=== PATIENT | male | born 1945 | race Caucasian/White ===

== ENCOUNTER 2016-10-07 12:10 | Emergency (ER) | payer OTHER ==
[2016-10-07 12:15] VITALS: RESP 16; TEMP 97.5
--- NOTE | 2016-10-07 12:17 | EDPHY ---
H & P Stated Complaint: back pain Time Seen by Provider: 10/07/16 12:16 HPI/ROS: CHIEF COMPLAINT: Low back pain x3 days HISTORY OF PRESENT ILLNESS: 71-year-old male drove to the emergency department complaining of 3 days of paraspinous lumbar pain, worse if he is standing or walking, better if he is sitting or flexed at the waist. Pain started initially few weeks ago when he was lifting is 95-year-old mother up. The pain then resolved slightly but increase in intensity 3 days ago. Atraumatic. No incontinence, no retention, no saddle anesthesia. No radiculopathy. No fever or chills. No trauma or fall. No Abdominal pain. No syncope or near syncope. No chest pain. No dysuria hematuria or increased frequency. No urethral discharge. No scrotal/testicular pain. REVIEW OF SYSTEMS: A ten point review of systems was performed and is negative with the exception of the items mentioned in the HPI PAST MEDICAL & SURGICAL HISTORY: Atrial fibrillation, chronic warfarin anticoagulation. Prostatectomy secondary to BPH history. SOCIAL HISTORY:nonsmoker. No drug use. . Former middle school baseball coach at [id number] PHYSICAL EXAM (Prior to examination, patient consented to physical exam, hands were washed and my usual and customary physical exam procedures followed) 1) GENERAL: Well-developed, well-nourished, alert and oriented. Appears to be in no acute distress. On LEs he is asked to stand at which point he appears uncomfortable 2) HEAD: Normocephalic, atraumatic 3) HEENT: Pupils equal, round, reactive to light bilaterally. Sclera anicteric. 4) NECK: Full range of motion, 5) LUNGS: Clear auscultation bilaterally 6) HEART: Regular rate and rhythm, no murmur, no heave, no gallop. 7) ABDOMEN: No guarding, no rebound, no focal tenderness, negative McBurney's, negative Garcia's, negative Rovsing's, negative peritoneal sign, no mass, no pulsatility 8) MUSCULOSKELETAL: Moving all extremities, no focal areas of tenderness, no obvious trauma. No peripheral edema or discoloration. 9) BACK: Painful paraspinous pain when he is standing erect, better if sitting flex at the waist. No CVA tenderness, no midline vertebral tenderness, no fluctuance, no step-off, no obvious trauma, no visual or palpable abnormality. Patella, Achilles reflexes intact to bilateral strength 5/5 10) SKIN: No rash, no petechiae. DIFFERENTIAL DIAGNOSIS: In no particular order, including but not limited to, fracture, sprain/strain, cauda equina, spinal infectious etiology, abdominal aneursym, - Personal History Current Tetanus/Diphtheria Vaccine: Yes Tetanus Vaccine Date: within 10 yrs - Medical/Surgical History Hx Asthma: No Hx Chronic Respiratory Disease: No Hx Diabetes: No Hx Cardiac Disease: Yes Hx Renal Disease: No Hx Cirrhosis: No Hx Alcoholism: No Hx HIV/AIDS: No Hx Splenectomy or Spleen Trauma: No Other PMH: afib, cardiac MVR, hernia repair, knee surgery - Social History Smoking Status: Never smoked Constitutional: Initial Vital Signs Temperature (C) 36.4 C 10/07/16 12:12 Heart Rate 92 10/07/16 12:12 Respiratory Rate 16 10/07/16 12:12 Blood Pressure 126/82 H 10/07/16 12:12 O2 Sat (%) 96 10/07/16 12:12 O2 Delivery Mode Room Air Allergies/Adverse Reactions: Penicillins Allergy (Severe, Verified 04/13/16 15:03) Rash Home Medications: Medication Instructions Recorded Acetaminophen [Tylenol Arthritis] 650 mg PO HS PRN 04/13/16 Metoprolol Succinate Xr [Toprol Xl 50 mg PO DAILY@18 04/13/16 50 mg (*)] Ramipril [Altace 5mg (*)] 5 mg PO DAILY@18 04/13/16 Vitamin B Complex [B Complex] 1 each PO DAILY 04/13/16 Warfarin Sodium [Coumadin 2.5MG 2.5 mg PO SUTUTHSA@04/13/16 (*)] Warfarin Sodium [Coumadin 5MG (*)] 5 mg PO MOWEFR@18 04/13/16 Hydrocodone/APAP 5/325 [Hitchins 1 tab PO Q6 PRN #15 tab 10/07/16 5/325 (RX)] Medical Decision Making - Diagnostics Imaging Results: Imaging Impressions Abdomen/Pelvis CT 10/07/16 12:30 Impression: 1. Bilateral nonobstructive nephrolithiasis, left greater than right. No ureterolithiasis or hydronephrosis. 2. Possible cysts versus solid masses with two in the left kidney upper pole measuring up to 6.5 cm and one in the right kidney lower pole measuring 2.2 cm. [address] follow up [address] abdomen with contrast or renal ultrasound. 3. Cholelithiasis without biliary ductal dilation. 4. Hypodense nonspecific lesion in the liver measuring 1.4 cm. This could be evaluated with ultrasound or CT. 5. Atherosclerotic aorta without aneurysm. 6. Diverticulosis without diverticulitis or bowel obstruction. 7. Severe degenerative lumbar spine resulting in severe central canal stenosis at L2-L3 and L3-L4. L5-S1 spondylolytic grade 2 spondylolisthesis resulting in severe bilateral neural foraminal stenosis. Findings and recommendations discussed with Emergency Department , SURINDER Aj at 1320 hours on October 07, 2016. Final report concurs with initial preliminary interpretation. Attention: This CT examination is specifically designed to evaluate patients who are clinically suspected of having acute obstructive uropathy. This examination does not use radiographic contrast, and as such, provides only a limited evaluation of the abdomen, pelvis and retroperitoneum. If there is further clinical suspicion for pathological conditions other than obstructive uropathy, a complete CT evaluation of the abdomen and pelvis utilizing intravenous, oral, and rectal contrast should be considered. Images reviewed by myself ED Course/Re-evaluation: MEDICAL DECISION MAKING 12:50 p.m.: Dip urinalysis negative for for leukocytes, nitrates, positive for blood. 1:15 p.m. The patient has been re-evaluated with serial exams most recently at 1 :15 p.m.. Discussed his imaging results showing multiple spinal abnormalities as well as incidental findings of gallstones and renal cysts. Regarding the gallstones, he has no complaints of abdominal pain currently has a nontender abdomen. I think these are incidental finding in do not necessitate emergent general surgery consultation. However, I did recommend that he follow up with General surgery informed him that if he develops abdominal pain any of my he return to the ER or follow up with his primary care provider immediately and provided my usual customary abdominal precautions. Also recommended follow-up with Urology regarding the findings of renal cysts. Regarding his back pain,. Lower index of suspicion for cauda equina, epidural abscess, epidural hematoma, lumbar myositis, diskitis, as the patient is neurologically intact in the lower extremities, has patella and Achilles reflexes intact and equal bilaterally, has no neurologic deficits, no incontinence, no retention, no midline pain, no fluctuance, afebrile, no flulike symptoms. Pain may be secondary to muscular strain, may be secondary to discogenic etiology. At this point I do not identify definitive indication for emergent MRI, however patient may necessitate this on an outpatient basis. He has been given Neurosurgery follow- up information and analgesia. He has been given usual customary opiate analgesia precautions instructions. He feels comfortable being discharged. Departure - Departure Disposition: Home, Routine, Self-Care Clinical Impression: Renal cyst Low back pain Qualifiers: Chronicity: acute Back pain laterality: bilateral Sciatica presence: without sciatica Qualified Code(s): M54.5 - Low back pain Condition: Good Instructions: Acute Low Back Pain (ED) Additional Instructions: Seek medical attention if you develop new or worsening pain, if you develop bladder or bowel dysfunction, numbness around your perineum, foot drop, or any other symptoms that concern you. You were noted to have incidental findings of gallstones and kidney cysts. These will need followup with urology and with general surgery. Referrals: Saurabh Prajapati MD [Medical Doctor] - 1-2 days without fail (Dr Prajapati and his associates are neurosurgeons) Maxim Bianchi MD [Medical Doctor] - 5-7 days, call for appt. (Dr Bianchi is a urologist) Jose R Roy MD [Medical Doctor] - 5-7 days, call for appt. (Dr Jose R Roy is a general surgeon) Prescriptions: Hydrocodone/APAP 5/325 [Hitchins 5/325 (RX)] 1 tab PO Q6 PRN #15 tab PRN Reason: Pain, Severe
[2016-10-07 13:57] VITALS: BP 130/78; PULSE 84; O2SAT 95
== END 2016-10-07 14:07 | disposition home or self-care (01) ==
DX: N28.1 Cyst of kidney, acquired (principal); Z79.01 Long term (current) use of anticoagulants

== ENCOUNTER → 2017-02-22 | Outpatient (CLI) | payer OTHER ==
[~2017-02-22] MED LIST: REGADENOSON 0.4 MG/5 ML SYR IVP ONE
--- NOTE | 2017-02-22 21:26 | CPR ---
[f rep st] NONINVASIVE CARDIAC PROCEDURE REPORT DATE OF PROCEDURE: 02/22/2017 PROCEDURE: Nuclear Lexiscan stress test. ORDERING PHYSICIAN: Federico Guzmán MD. REASON FOR TEST: 1. CAD history. 2. History of PCI. 3. Atrial fibrillation. 4. Pre-surgical clearance. FINDINGS: Resting EKG shows atrial fibrillation with frequent PVCs. His resting blood pressure 112/84, resting heart rate 75, oxygen saturation 95. He is asymptomatic. STRESS PORTION: Lexiscan was injected rapidly, followed by Cardiolite injection. He did feel flushed and short of breath. Following the infusion, his blood pressure 100/70, heart rate 100, oxygen saturation 95%. There were no other symptoms immediately following the injection. He had rare PVCs. No ischemic changes noted. RECOVERY: He spontaneously recovered. He did develop a headache during recovery. The flushing and shortness of breath subsided with caffeine. Recovery blood pressure 106/68, heart rate 103, oxygen saturation 96%. No EKG changes. At this time, he currently is stable for nuclear imaging. /[id number]/MODL MTDD
== END ==
LOC: FIMAGING 12:25
PROVIDERS: ATTEND Internal Medicine Cardiovascular Disease
DX: Z01.810 Encounter for preprocedural cardiovascular examination (principal); I25.10 Atherosclerotic heart disease of native coronary artery without angina pectoris; I48.91 Unspecified atrial fibrillation; Z95.5 Presence of coronary angioplasty implant and graft
CPT/HCPCS: 78452; 93017; A9500; J2785

== ENCOUNTER → 2018-02-20 | Outpatient (CLI) | payer OTHER | LOC: BHFA 15:30 | PROVIDERS: ATTEND Internal Medicine Cardiovascular Disease | DX: I48.91 Unspecified atrial fibrillation (principal) ==

== ENCOUNTER → 2018-02-20 | Outpatient (CLI) | payer OTHER ==
--- NOTE | 2018-02-20 15:48 | ECHO ---
[email or web address] [address] [address] Main: [phone] Fax: Transthoracic Echocardiogram Name: ASIM JACOBS MR#: [id number] Study Date: 02/20/2018 Study Time: 01:55 PM Date of : 1945 Age: 72 year(s) Height: 182.9 cm (72 in.) Weight: 97.07 kg (214 lb.) BSA: 2.19 m2 Gender: Male Examination: Echo Indication: Atrial Fibrillation, Mitral Valve Repair 2004 Image Quality: Adequate Contrast: Requested by: Gabriela Perez BP: 125 mmHg/75 mmHg Heart Rate: Rhythm: Atrial fibrillation Indication: Atrial Fibrillation, Mitral Valve Repair 2004 Procedure Staff Business Services Officer: Jarrett Rocha RDCS Reading Physician: Cody Olmedo MD Requesting Provider: Conclusions: Normal size left ventricle. Low normal left ventricular systolic function. Grade 2 diastolic dysfunction (pseudonormalized LV filling pattern). Elevated left ventricular filling pressures.. The rhythm is atrial fibrillation. The EF is estimated at 50% . The left atrium is severely dilated. The right atrium is moderately dilated. An annuloplasty ring is noted in the mitral valve position. Previously repaired mitral valve without significant mitral regurgitation. Mild aortic valve regurgitation is present. Measurements: Chambers Valvular Assessment AV/MV Valvular Assessment TV/PV Normal Normal Normal Name Value Range Name Value Range Name Value Range Ao Radha (MM): 4.1 cm (2.2 cm-3.7 AV Vmax: 1.06 m/s (1 m/s-1.7 TR Vmax: 2.96 mm/s ( - ) cm) m/s) TR PGmax: 35 mmHg ( - ) IVSd (2D): 1.0 cm (0.6 cm-1.1 AV maxP mmHg ( - ) syst. PAP: 40 mmHg ( - ) cm) LVOT Vmax: 0.75 m/s (0.7 m/s-1.1 PV Vmax: 0.84 m/s (0.6 m/s-0.9 LVDd (2D): 4.7 cm (4.2 cm-5.9 m/s) m/s) cm) AR (PHT): 948 ms ( - ) PV PGmax: 3 mmHg ( - ) LVDs (2D): 3.5 cm (2.1 cm-4 MV E Vmax: 1.29 m/s ( - ) cm) LVPWd (2D): 1.0 cm (0.6 cm-1 cm) LVEF (MOD4): 56 % (>=55 %) Continued Measurements: Chambers Valvular Assessment AV/MV Valvular Assessment TV/PV Patient: ASIM JACOBS Study Date: 02/20/2018 Page 1 of 2 01:55 PM Name Value Name Value Name Value LADs Lon.4 cm MV E' Septal: 0.04 m/s CVP (est.): 5 mmHg LA Area: 47.4 cm2 MV E/E' Septal: 31.50 LA Volume: 233 ml MV E/E' Lateral: 17.40 LA Volume Index: 106.4 ml/m2 AR Vmax: 4.19 cm/s Findings: Left Ventricle: Normal size left ventricle. Low normal left ventricular systolic function. EF is 56 %. No regional wall motion abnormality. Grade 2 diastolic dysfunction (pseudonormalized LV filling pattern). Elevated left ventricular filling pressures.. The rhythm is atrial fibrillation. The EF is estimated at 50% . Right Ventricle: Normal size right ventricle. Mildly reduced RV function. Left Atrium: The left atrium is severely dilated. Right Atrium: The right atrium is moderately dilated. The RA area is 27.2 cm2. Mitral Valve: An annuloplasty ring is noted in the mitral valve position. Previously repaired mitral valve without significant mitral regurgitation. Aortic Valve: The aortic valve is tri-leaflet. Mild aortic valve regurgitation is present. Tricuspid Valve: Mild tricuspid regurgitation is present. The pulmonary artery pressure is mildly increased. Pulmonic Valve: The pulmonic valve is normal in appearance and function. Aorta: The aorta is normal. Pericardium: No pericardial effusion. (No Signature Object) Patient: ASIM JACOBS Study Date: 02/20/2018 Page 2 of 2 01:55 PM [id number]
== END ==
LOC: FCP 13:51
PROVIDERS: ATTEND Nurse Practitioner Adult Health
DX: I48.91 Unspecified atrial fibrillation (principal); I08.3 Combined rheumatic disorders of mitral, aortic and tricuspid valves

== ENCOUNTER → 2018-08-08 | Outpatient (CLI) | payer OTHER | LOC: FIMAGING 09:14 | PROVIDERS: ATTEND Orthopaedic Surgery | DX: M16.12 Unilateral primary osteoarthritis, left hip (principal) ==

== ENCOUNTER 2018-08-23 07:44 | Inpatient (IN) | payer OTHER ==
[~2018-08-23 07:44] MED LIST changes: +POVIDONE-IODINE 20 ML in SODIUM CL IRRIG SOLUTION 500 ML IRR ONE; -REGADENOSON 0.4 MG/5 ML SYR IVP ONE; +ROPIVACAINE 0.2% 80 MG, EPINEPHrine 0.2 MG, KETOROLAC TROMETHAMINE 30 MG in SYRINGE 0 ML IU ONE; +TRANEXAMIC ACID 1,000 MG in NS 100 ML IV ONE
[2018-08-23] MEDS ORDERED: BUPIVACAINE/EPI 0.5% 30 ML SDV ONE (07:59)
[2018-08-23] MEDS ORDERED: DEXAMETHASONE 4 MG/ML VIAL IVP ONE (08:27)
[2018-08-23] MEDS ORDERED: FAMOTIDINE 20 MG TAB PO ONE (08:27)
[2018-08-23] MEDS ORDERED: ACETAMINOPHEN 325 MG TAB PO ONE (08:27)
[2018-08-23] MEDS ORDERED: VANCOMYCIN PHARMACY TO DOSE MISC ONE (08:27)
[2018-08-23] MEDS ORDERED: LR 1,000 ML IV ONE (08:28)
--- NOTE | 2018-08-23 08:33 | PDANEPAE ---
ANE Past Medical History - Cardiovascular History Hx Hypertension: Yes Hx Arrhythmias: Yes Hx CHF / Valvular Disease: Yes Hx Palpitations: Yes Cardiovascular History Comment: OPEN HEART, MITRAL VALVE REPAIR, AFIB. CAD. THORACIC ANEURYSM - Pulmonary History Hx COPD: No Hx Asthma/Reactive Airway Disease: No Hx Recent Upper Respiratory Infection: No Hx Oxygen in Use at Home: No Hx Sleep Apnea: Yes Sleep Apnea Screening Result - Last Documented: Positive Pulmonary History Comment: POS SLEEP APNEA W/CPAP - Neurologic History Hx Cerebrovascular Accident: No Hx Seizures: No Hx Dementia: No - Endocrine History Hx Diabetes: No Obesity: moderate - Renal History Hx Renal Disorders: No - Liver History Hx Hepatic Disorders: No - Neurological & Psychiatric Hx Hx Neurological and Psychiatric Disorders: No - Cancer History Hx Cancer: No - Congenital Disorder History Hx Congenital Disorders: No - GI History GERD: no Hx Gastrointestinal Disorders: No - Other Health History Other Health History: NEG - Chronic Pain History Chronic Pain: Yes (L HIP & LOW BACK) - Surgical History Prior Surgeries: 2017 LUMBAR L3/L4 SURGERY. TURP. MITRAL VALVE REPAIR, KNEE, HERNIA REPAIR, VARICOSE VEIN ANE Review of Systems Review of Systems: - Exercise capacity METS (RN): 4 METS ANE Patient History - Allergies Allergies/Adverse Reactions: Penicillins Allergy (Severe, Verified 04/13/16 15:03) Rash - Home Medications Home Medications: Ramipril [Altace 5mg (*)] 5 mg PO DAILY@18 04/13/16 [Last Taken 04/27/16] Vitamin B Complex [B Complex] 1 each PO DAILY 04/13/16 [Last Taken 04/21/16] Warfarin Sodium [Coumadin 2.5MG (*)] 2.5 mg PO MWF@18 04/13/16 [Last Taken 04/21] Warfarin Sodium [Coumadin 5MG (*)] 5 mg PO SUTUTHSA@18 04/13/16 [Last Taken 06/06] Acetaminophen [Tylenol ES 500 mg (*)] 500 mg PO Q6 PRN 08/08/18 [Last Taken Unknown] Calcium Carbonate [Oyster Shell Calcium 500 mg (*)] 500 mg PO DAILY 08/08/18 [ Last Taken Unknown] Cholecalciferol Vit D3 [Vitamin D3 (*)] 1,000 units PO DAILY 08/08/18 [Last Taken Unknown] Cholecalciferol Vit D3 [Vitamin D3 (*)] 1,000 units PO DAILY 08/08/18 [Last Taken Unknown] Metoprolol Succinate Xr [Toprol Xl 25 mg (*)] 25 mg PO DAILY18 08/08/18 [Last Taken Unknown] - NPO status NPO Status: no food or drink >8 hours - Anes Hx Anes Hx: no prior problems - Smoking Hx Smoking Status: Never smoked - Family Anes Hx Family Hx Anesthesia Complications: NONE ANE Labs/Vital Signs - Vital Signs Height: 180.34 cm Weight: 97.069 kg ANE Physical Exam - Airway Neck exam: FROM Mallampati Score: Class 2 Mouth exam: normal dental/mouth exam - Pulmonary Pulmonary: no respiratory distress, no rales or rhonchi, clear to auscultation - Cardiovascular Cardiovascular: irregularly irregular - ASA Status ASA Status: III ANE Anesthesia Plan Anesthesia Plan: spinal
[2018-08-23] MEDS ORDERED: CEFAZOLIN 2 GM/DEXTROSE/100 ML BAG IV ONE (08:43)
[2018-08-23] MEDS ORDERED: BUPIVACAINE/DEXTROSE 7.5MG/ML 2 ML SPINAL AMP SP ONE (08:43)
[2018-08-23] MEDS ORDERED: ceFAZolin 2 GM/DEXTROSE 100 ML IV ONE (09:00)
[2018-08-23 09:07] LABS: INR 1.19 (0.83-1.16); PROTIME(PATIENT) 14.6 SEC (12.0-15.0)
[2018-08-23] MEDS ORDERED: fentaNYL 100 MCG/2 ML INJ ONE ×2 (09:13→10:42)
--- NOTE | 2018-08-23 09:13 | PDHPUP ---
History & Physical Update H&P update statement: This history and physical update is based on an assessment of the patient which was completed after admission or registration (within 24 hours), but prior to the surgery/procedure. H&P update: H&P reviewed & patient examined, no change in patient's condition since H&P completed
[2018-08-23] MEDS ORDERED: PROPOFOL 200 MG/20 ML VIAL ONE ×2 (09:14→10:18)
[2018-08-23] MEDS ORDERED: DEXAMETHASONE 4 MG/ML VIAL ONE ×2 (09:14)
[2018-08-23] MEDS ORDERED: ROCURONIUM 50 MG/5 ML VIAL ONE (09:50)
[2018-08-23] MEDS ORDERED: *IRR*TRANEXAMIC ACID 3,000 MG/NS 50 ML IRR ONE (10:00)
[2018-08-23] MEDS ORDERED: ONDANSETRON 4 MG/2 ML VIAL ONE (10:42)
[2018-08-23] MEDS ORDERED: NEOSTIGMINE METHYLSULFATE 5 MG/5 ML SYR ONE (11:10)
[2018-08-23] MEDS ORDERED: GLYCOPYRROLATE 0.2 MG/1 ML VIAL ONE (11:10)
[2018-08-23] MEDS ORDERED: MEPERIDINE 25 MG/0.5 ML AMP IVP PRN (11:16)
[2018-08-23] MEDS ORDERED: ACETAMINOPHEN 500 MG TAB PO PRN (11:16)
[2018-08-23] MEDS ORDERED: LR 500 ML IV PRN (11:16)
[2018-08-23] MEDS ORDERED: NALOXONE HCL 0.4 MG/ML INJ IVP PRN (11:16)
[2018-08-23] MEDS ORDERED: PROMETHAZINE HCL 25 MG/ML INJ IVP PRN ×2 (11:16→11:40)
[2018-08-23] MEDS ORDERED: DIAZEPAM 5 MG/ML 1 ML SYR IVP PRN (11:16)
[2018-08-23] MEDS ORDERED: ONDANSETRON 4 MG/2 ML VIAL IVP PRN ×2 (11:16→11:40)
[2018-08-23] MEDS ORDERED: fentaNYL 100 MCG/2 ML INJ IVP PRN (11:16)
[2018-08-23] MEDS ORDERED: HYDROCODONE/APAP 5/325 TAB PO PRN (11:16)
[2018-08-23] MEDS ORDERED: POLYETHYLENE GLYCOL 3350 17 GM PKT PO PRN (11:40)
[2018-08-23] MEDS ORDERED: diphenhydrAMINE 25 MG CAP PO PRN (11:40)
[2018-08-23] MEDS ORDERED: TEMAZEPAM 15 MG CAP PO PRN (11:40)
[2018-08-23] MEDS ORDERED: MAGNESIUM HYDROXIDE 30 ML UDCUP PO PRN (11:40)
[2018-08-23] MEDS ORDERED: CYCLOBENZAPRINE 10 MG TAB PO PRN (11:40)
[2018-08-23] MEDS ORDERED: METOCLOPRAMIDE 10 MG/2 ML VIAL IVP PRN (11:40)
[2018-08-23] MEDS ORDERED: BISACODYL 10 MG SUPP PR PRN (11:40)
[2018-08-23] MEDS ORDERED: LACTULOSE 20 GM/30 ML UDCUP PO PRN (11:40)
[2018-08-23] MEDS ORDERED: DIPHENOXYLATE/ATROPINE LOMOTIL 1 TAB PO PRN (11:40)
[2018-08-23] MEDS ORDERED: PROMETHAZINE HCL 25 MG SUPPR PR PRN (11:40)
[2018-08-23] MEDS ORDERED: ONDANSETRON DISINTEGRATING 4 MG TAB PO PRN (11:40)
--- NOTE | 2018-08-23 11:45 | POSTOPPROG ---
Post Op Note Date of Operation: 08/23/18 Surgeon: Buster Brand Clinical Research Nurse Coordinator: POOJA Daley Anesthesiologist: Arielle Anesthesia: GET(General Endotracheal) Pre-op Diagnosis: Left hip OA Post-op Diagnosis: same Procedure: Left anterior ALIYAH Inf/Abcess present in the surg proc area at time of surgery?: No EBL: 100-500 (300) Drains: Hemovac
--- NOTE | 2018-08-23 12:29 | PDMN ---
Medical Necessity Medical necessity: [facility] S560 Hip Arthroplasty, A-2 days: 73 yo s/p L ALIYAH, [facility] IP only
[2018-08-23] MEDS: oxyCODONE IR 5 MG TAB PO PRN ×2 (16:01→22:41)
[2018-08-23] MEDS: ACETAMINOPHEN 325 MG TAB PO SCH ×2 (16:02→23:10)
--- NOTE | 2018-08-23 16:19 | POSTANESTH ---
Post Anesthetic Evaluation Cardiovascular Status: Tx Hyper/Hypo-tension (BP quite low on arrival in PACU, 70s/40s. IV fluid bolus given, with improvement to 90s. No cardiac ischemia or CHF symptoms. Still in atrial fibrillation.) Respiratory Status: Normal, Stable, Similar to Pre-op Cond. Level of Consciousness/Mental Status: Can Participate in Eval, Mildly Sleepy, Arousable Pain Control: Adequate, Prn Tx Ordered Nausea/Vomiting Control: Adequate, Prn Tx Ordered Complications Possibly Related to Anesthesia: None Noted
[2018-08-23] MEDS: LR 1,000 ML IV SCH ×2 (16:49→23:12)
[2018-08-23] MEDS: ceFAZolin 2 GM/DEXTROSE 100 ML IV SCH (16:49)
[2018-08-23] MEDS ORDERED: RAMIPRIL 5 MG CAP PO SCH ×2 (18:00→21:00)
[2018-08-23] MEDS ORDERED: WARFARIN SODIUM 5 MG TAB PO SCH ×2 (18:00→21:00)
[2018-08-23] MEDS ORDERED: METOPROLOL SUCCINATE XR 25 MG TAB PO SCH ×2 (18:00→21:00)
[2018-08-23] MEDS: SENNOSIDES/DOCUSATE SODIUM TAB PO SCH (20:31)
[2018-08-23] MEDS: FAMOTIDINE 20 MG TAB PO SCH (20:34)
[2018-08-24] MEDS: ceFAZolin 2 GM/DEXTROSE 100 ML IV SCH (00:34)
[2018-08-24] MEDS: ACETAMINOPHEN 325 MG TAB PO SCH ×2 (05:12→12:47)
[2018-08-24 05:13] LABS: INR 1.37 (0.83-1.16); PROTIME(PATIENT) 16.3 SEC (12.0-15.0)
[2018-08-24] MEDS ORDERED: NS 500 ML IV ONE (07:18)
[2018-08-24] MEDS: LR 1,000 ML IV SCH (08:04)
[2018-08-24] MEDS ORDERED: traMADol 50 MG TAB PO PRN (08:07)
[2018-08-24] MEDS: FAMOTIDINE 20 MG TAB PO SCH (08:11)
[2018-08-24] MEDS: SENNOSIDES/DOCUSATE SODIUM TAB PO SCH (08:11)
[2018-08-24] MEDS ORDERED: CHOLECALCIFEROL VIT D3 1,000 UNITS TAB PO SCH ×2 (09:00)
[2018-08-24] MEDS ORDERED: ENOXAPARIN 40 MG/0.4 ML SYR SC SCH (09:00)
[2018-08-24] MEDS ORDERED: CALCIUM CARBONATE 500 MG TAB PO SCH (09:00)
[2018-08-24] MEDS ORDERED: VITAMIN B COMPLEX 1 EA CAP/TAB PO SCH (09:00)
--- NOTE | 2018-08-24 11:10 | PDIAF ---
- Diagnosis Diagnosis: left hip osteoarthritis Code Status: Full Code - Medication Management Discharge Medications: electronically signed and located in the Home Medication List. - Orders Services needed: Physical Therapy Diet Recommendation: no restrictions on diet Diet Texture: Regular Texture Diet Additional Instructions: WBAT, PT/OT d/c meds Percocet prn pain Colace Lovenox bridge to home dose therapeutic Warfarin see handout - Labs/Radiology PT/INR Date: 08/27/18 - Follow Up Care Current Providers and Referrals: YAMILET VALADEZ [Primary Care Provider] -
--- NOTE | 2018-08-24 11:17 | SOAPPROG ---
SOAP Progress Note Assessment/Plan: Assessment: 73 y/o male POD #1 from a left DA THR Plan: D/C Home Dressing Change DVT PPx of Lovenox bridging to coumadin WBAT with DA Hip precautions Monitor Vitals PT/OT 08/24/18 11:10 Subjective: 73 y/o male who is POD #1 from a left THR. Patient currently has no complaints. States his blood pressure was low but he has been trying to drink lots of fluids to help bring it up. Patient denies any fever, chills. lightheadedness, CP, SOB, Abdominal pain, Nausea, vomiting. Objective: AOx4 NAD Incision dressing C/D/I Mild swelling anterior lateral left hip Dressing from drain is saturated with sanguneous fluid 5/5 MMT of Df, PF, EHL 2+ DP and Post Tib pulses Vital Signs Temp Pulse Resp BP Pulse Ox 36.7 C 87 16 86/56 L 88 L 08/24/18 07:54 08/24/18 08:22 08/24/18 07:54 08/24/18 08:22 08/24/18 07:54 Laboratory Results 08/24/18 04:56 08/23/18 08/24/18 08/25/18 05:59 05:59 05:59 Intake Total 3675 Output Total 1350 550 Balance 2325 -550 PT 16.3 SEC (12.0-15.0) H 08/24/18 04:56 INR 1.37 (0.83-1.16) H 08/24/18 04:56 - Pending Discharge Pending Discharge Within 24 Hours: Yes Pending Discharge Date: 08/25/18 Pending Discharge Time: 11:00 ICD10 Worksheet Patient Problems: Problems Problem Status Onset Unilateral primary osteoarthritis, left hip Acute Benign localized hyperplasia of prostate with urinary obstruction Acute
--- NOTE | 2018-08-24 11:21 | PDDCSUM ---
Discharge Summary Discharge Summary: 73 y/o male who failed conservative management of Left Hip Osteoarthritis. Patient underwent a risk and benefit analysis with Dr Brand and signed consent to undergo a left hip THR on 08/23/18. Patient tolerated the procedure and went to the PACU. Patient had during his stay issues with hypotension but this has been stabilized with IV and PO intake of fluids. Patient was seen by PT/OT. Patient once stabilized on POD 1 was d/c to home. He will take lovenox bridge for coumadin which is one of his home medications for DVT PPx Follow-up with Dr Brand in 2 weeks PT for Total Hip Replacement Dressing change distally daily prn drainage. d/c distal dressing on 08/26/2018.
[2018-08-24 11:26] VITALS: BP 138/72
--- NOTE | 2018-08-24 11:53 | ASMTCMCOM ---
CM Note CM Note Notes: Chart Review for Discharge Planning: Patient is a 73 year old male here for planned left hip Total Hip Replacement on 08/23/18. CM met with patient to discuss [facility], he expects to have HH for a week then will start outpatient. CM confirmed home address & phone number is correct. CM spoke with Mame with [facility], they are aware patient will discharge today and are able to accept for care. CM available to follow if CM needs arise. Date Signed: 08/24/2018 11:53 AM Electronically Signed By:Sonia Villarreal
[2018-08-24] MEDS ORDERED: WARFARIN SODIUM 2.5 MG TAB PO SCH (21:00)
--- NOTE | 2018-08-27 13:07 | GOP ---
[f rep st] OPERATIVE REPORT DATE OF OPERATION: 08/23/2018 SURGEON: Buster Brand MD VP PURCHASING: Hiram Daley, CSFA, LSA. Paraprofessional Aide was required for the procedure due to complexity of the case and patient's condition for positioning, prepping, draping, retraction, and closure. ANESTHESIA: General due to failed attempt at spinal. PREOPERATIVE DIAGNOSIS: Left hip osteoarthritis. POSTOPERATIVE DIAGNOSIS: Left hip osteoarthritis. PROCEDURE PERFORMED: Left hip anterior approach hip replacement with MAKOplasty robotic guidance, fl uoroscopic supervision greater than 1 hour. FINDINGS: SPECIMENS: Femoral head x1. ESTIMATED BLOOD LOSS: 400 cc. INDICATIONS: Patient have severe hip osteoarthritis that failed to improve with conservative measure s significantly affecting activities of daily living, including walking. The patient elected to proc eed with anterior approach hip replacement using MAKOplasty robotic guidance after extensive discussi on of all possible approaches, as well as risks, benefits, pros, cons, expected recovery, and prognos is. Patient verbalized understanding of the risks and benefits of procedure and signed informed cons ent prior to the procedure. DESCRIPTION OF PROCEDURE: The patient was seen in the holding area and operative consent and extremi ty were signed. The patient is taken the operating room. After smooth induction of spinal anesthesi a and sedation, the patient was placed in the supine position on the operating room table with the ar ch table extension. The hip and contralateral iliac crest were prepped and draped in the usual steri le fashion. Operative time-out was confirmed by signature. Operative time-out performed. Allergies reviewed, and antibiotics were administered. Three pins were placed in the contralateral iliac crest and pelvic array was fixed. It was well visu alized by the robot. The desired incision for the anterior approach of the hip was infiltrated with 0.25% Marcaine with epinephrine. Incision was made with a 10 blade, carried through subcutaneous tis sues to identify the TFL fascia. This was incised in line with the incision and the TFL was retracte d laterally. The lateral femoral circumflex vessels were coagulated with the Aquamantys. The deep T FL fascia was incised and vastus lateralis was clearly exposed. Pre-capsular fat was excised. A T-s haped capsulotomy was performed. The hip was preserved for later closure. Femoral neck cut was then performed based on pre-templated calculations and imaging. The femoral head was excised with a cork screw. The acetabulum was exposed in standard fashion. The labrum, pulvinar soft tissues were sharply excis ed. The pelvic checkpoint was then placed in the AIIS. Acetabular registration was performed using the robot. Reaming was then performed using the robot to the desired size. The cup was impacted int o place again with robotic guidance system. Good fixation was achieved. The cup was irrigated and d ried, and the liner was impacted into place achieving good locking within the cup. Femur was then ex posed in standard fashion. The hip was broached to the desired size. Trial neck and head were attac hed, and the hip was relocated. The position of all components was confirmed fluoroscopically. The foot was then externally rotated 90 degrees, extended the floor, and stability was again confirmed. Hip was then dislocated and the femoral trial components were removed, and he stem was impacted into place. The trunnion was cleaned and dried, and the head was impacted down onto the trunnion. The wo und was copiously irrigated, including the cup with pulse lavage, and the hip was once again relocate d. The cup component placement was confirmed with fluoroscopy. All checkpoints were then removed. Pelvic array was also removed. The wound was copiously irrigated with sterile solution. Dilute Betadine solution was then irrigated in the wound and allowed to soak for 3 minutes before being irrigated out. Topical TXA was placed into the wound, also allowed to so ak. The joint cocktail was injected in the soft tissues. The capsule and indirect head of the rectu s femoris were repaired with #1 Vicryl sutures. The drain was placed exiting distally and laterally from deep to TFL. The wound was closed in layers with 0 Quill in the TFL fascia and deep subcutaneou s fat, 3-0 in the dermis. The wound was dressed with sterile dressings. Patient was safe ly awakened, taken to recovery room in stable condition. All critical portions of the procedure were performed by myself, Dr. Brand. This operative note was c reated by myself, and I was immediately available for emergency cross-coverage at all times. DRAINS: Hemovac x1. COMPLICATIONS: None. IMPLANTS: Includes a Feroz Trident II Tritanium cluster hole acetabular shell size 58 with a 0-deg ree, 36 mm polyethylene liner, Feroz Accolade II size 8 stem 127 degree offset with a 36 mm +0 head . /[id number]/MODL
== END 2018-08-24 14:20 | disposition home health service (06) | DRG 470 ==
LOC: F1N 07:44 → F3N 10:22 → OBSVTOIN 11:44 → F3N 13:02
PROVIDERS: ADMIT Orthopaedic Surgery; ATTEND Orthopaedic Surgery
PROC: 0SRB04Z Replacement of Left Hip Joint with Ceramic on Polyethylene Synthetic Substitute, Open Approach (ICD-10-PCS; principal; 2018-08-23 09:15)
PROC: 8E0Y0CZ Robotic Assisted Procedure of Lower Extremity, Open Approach (ICD-10-PCS; principal; 2018-08-23 09:15)
DX: M16.12 Unilateral primary osteoarthritis, left hip (principal); I95.9 Hypotension, unspecified; I12.9 Hypertensive chronic kidney disease with stage 1 through stage 4 chronic kidney disease, or unspecified chronic kidney disease; N18.2 Chronic kidney disease, stage 2 (mild); I48.1 Persistent atrial fibrillation; I25.10 Atherosclerotic heart disease of native coronary artery without angina pectoris; G47.33 Obstructive sleep apnea (adult) (pediatric)
CPT/HCPCS: 97110-GP; 97116-GP; 97161-GP; 97165-GO; J0171; J0690; J1100; J1650; J1885; J2405; J2704; J2710; J2795; J3010